=== PATIENT | female | born 1995 | race African-American/Black ===

== ENCOUNTER 2017-06-13 17:17 | Emergency (ER) | payer OTHER ==
[~2017-06-13] VITALS: Ht 152.4 cm; Wt 54.9 kg
[2017-06-13] MEDS ORDERED: IV NORMAL SALINE 1000ML BAG 1,000 ML IV SCH (17:31)
[2017-06-13 17:58] LABS: BASO % 1 % (0-3); EOS % 1 % (0-3); HEMATOCRIT 31.2 % (36.0-47.0); HEMOGLOBIN 10.6 g/dL (12.0-15.5); LYMPH # 1.9 x10^3/uL (1.0-4.8); LYMPH % 34 % (24-48); MEAN CORPUSCULAR HEMOGLOBIN 27 pg (25-35); MEAN CORPUSCULAR HGB CONC 34 g/dL (31-37); MEAN CORPUSCULAR VOLUME 81 fL (79-100); MONO % 9 % (0-9); NEUT % 56 % (31-73); PLATELET COUNT 290 x10^3/uL (140-400); RED BLOOD COUNT 3.86 x10^6/uL (3.50-5.40); RED CELL DISTRIBUTION WIDTH 19.6 % (11.5-14.5); WHITE BLOOD COUNT 5.6 x10^3/uL (4.0-11.0)
[2017-06-13 18:17] LABS: CALCIUM 9.4 mg/dL (8.5-10.1); CREATININE 0.6 mg/dL (0.6-1.0); GFR 126.2; POTASSIUM 3.2 mmol/L (3.5-5.1)
[2017-06-13 18:22] LABS: ALBUMIN 3.4 g/dL (3.4-5.0); ALBUMIN/GLOBULIN RATIO 0.7 (1.0-1.7); TOTAL BILIRUBIN 0.3 mg/dL (0.2-1.0); TOTAL PROTEIN 8.2 g/dL (6.4-8.2)
--- NOTE | 2017-06-13 18:26 | RAD ---
OB ultrasound less than 14 weeks 06/13/2017 CLINICAL HISTORY: First trimester with abdominal pain. TECHNIQUE: A real-time ultrasound examination of the gravid uterus was performed. Multiple images were obtained. FINDINGS: A gestational sac is seen within the endometrial canal within the body of the uterus. Within this gestational sac an embryonic pole is seen. The CRL of this embryonic pole measures 4.0 cm. This corresponds to an estimated gestational age by ultrasound of 10 weeks 6 days plus or minus a standard deviation of 7 days. Embryonic cardiac activity is seen with a heart rate of 182 beats per minutes. The uterus is otherwise within normal limits. The left ovary is not visualized. The right ovary is normal in size. It measures 4.9 x 2.7 x 3.5 cm in size. A 2.5 cm corpus luteum is seen involving the right ovary. No free fluid is seen. IMPRESSION: Single living IUP with an estimated gestational age by ultrasound of 10 weeks 6 days plus or minus a standard deviation of 5 days. The estimated date of delivery by ultrasound of 01/03/2018. Electronically signed by: Jhonny Patel MD (06/13/2017 6:23 PM) [facility]
--- NOTE | 2017-06-13 19:14 | PHYS DOC ---
Past Medical History Past Medical History: No Pertinent History Past Surgical History: No Surgical History Alcohol Use: None Drug Use: None Adult General Chief Complaint Chief Complaint: ABDOMINAL PAIN IN HPI HPI Patient is a 21 year old female who reports that she is about 10 weeks who presents with abdominal pain that started last night. It started on both sides of her abdomen in the middle to upper abdomen last night. She was able to sleep okay but the pain was back this morning. Bouts more in the middle of her abdomen. She does have some lower abdominal discomfort. She has not had any spotting or bleeding. She's had nausea today but no vomiting. Patient is G1. She had a positive home test. She was seen in the ED in [place] for cramps but no bleeding, she did not have an ultrasound but they did confirm a positive test. They prescribed Tylenol with Codeine but that made her nauseated and she took only 2 of them. Patient is in good general health, no chronic medical problems, and does not take daily medications. She does not yet have a new OB appointment. She works doing assembly work. Review of Systems Review of Systems Constitutional: Denies fever or chills [] HENT: Denies nasal congestion or sore throat [] Respiratory: Denies cough or shortness of breath [] Cardiovascular: Denies chest pain GI: As in history of present illness : Denies dysuria or hematuria , denies spotting or bleeding Musculoskeletal: Denies back pain or joint pain [] Integument: Denies rash or skin lesions [] Neurologic: Denies headache Current Medications Current Medications Current Medications Medications (Trade) Dose Ordered Sig/Janet Start Time Stop Time Status Last Admin Dose Admin Sodium Chloride 1,000 ml @ 1,000 mls/hr Q1H 06/13/17 17:31 06/13/17 18:30 DC 06/13/17 17:49 1,000 MLS/HR Allergies Allergies Allergies Coded Allergies Type Severity Reaction Last Updated Verified No Known Drug Allergies 06/13/17 No Physical Exam Physical Exam Constitutional: Well developed, well nourished, no acute distress, non-toxic appearance. Alert, mentating normally, ambulatory, warm and dry. HENT: Normocephalic, atraumatic, bilateral external ears normal, nose normal. [] Eyes: conjunctiva normal, no discharge. [] Neck: Normal range of motion, no stridor. [] Cardiovascular:Heart rate regular rhythm, no murmur [] Lungs & Thorax: Bilateral breath sounds clear to auscultation [] Abdomen: Bowel sounds normal, soft, nondistended, no masses, no pulsatile masses. Mild generalized tenderness to palpation across the mid abdomen. Little to no lower abdominal tenderness. Negative right lower quadrant tenderness. Negative Florez's. Skin: Warm, dry, no erythema, no rash. [] Extremities: No tenderness, no cyanosis, no clubbing, ROM intact, no edema. [] Neurologic: Alert and oriented X 3, normal motor function, no focal deficits noted. [] Current Patient Data Vital Signs Vital Signs Date Time Temp Pulse Resp B/P (MAP) Pulse Ox O2 Delivery O2 Flow Rate FiO2 06/13/17 19:30 90 20 114/72 (86) 99 Room Air 06/13/17 17:20 98.3 98.3 Lab Values Laboratory Tests Test 06/13/17 17:27 06/13/17 17:55 POC Urine HCG, Qualitative Hcg positive (Negative) White Blood Count 5.6 x10^3/uL (4.0-11.0) Red Blood Count 3.86 x10^6/uL (3.50-5.40) Hemoglobin 10.6 g/dL (12.0-15.5) L Hematocrit 31.2 % (36.0-47.0) L Mean Corpuscular Volume 81 fL (79-100) Mean Corpuscular Hemoglobin 27 pg (25-35) Mean Corpuscular Hemoglobin Concent 34 g/dL (31-37) Red Cell Distribution Width 19.6 % (11.5-14.5) H Platelet Count 290 x10^3/uL (140-400) Neutrophils (%) (Auto) 56 % (31-73) Lymphocytes (%) (Auto) 34 % (24-48) Monocytes (%) (Auto) 9 % (0-9) Eosinophils (%) (Auto) 1 % (0-3) Basophils (%) (Auto) 1 % (0-3) Neutrophils # (Auto) 3.2 x10^3uL (1.8-7.7) Lymphocytes # (Auto) 1.9 x10^3/uL (1.0-4.8) Monocytes # (Auto) 0.5 x10^3/uL (0.0-1.1) Eosinophils # (Auto) 0.0 x10^3/uL (0.0-0.7) Basophils # (Auto) 0.0 x10^3/uL (0.0-0.2) Maternal Serum HCG Beta Subunit 748259 mIU/mL (0-5) H Sodium Level 135 mmol/L (136-145) L Potassium Level 3.2 mmol/L (3.5-5.1) L Chloride Level 100 mmol/L (98-107) Carbon Dioxide Level 24 mmol/L (21-32) Anion Gap 11 (6-14) Blood Urea Nitrogen 6 mg/dL (7-20) L Creatinine 0.6 mg/dL (0.6-1.0) Estimated GFR (Cockcroft-Gault) 126.2 BUN/Creatinine Ratio 10 (6-20) Glucose Level 82 mg/dL (70-99) Calcium Level 9.4 mg/dL (8.5-10.1) Total Bilirubin 0.3 mg/dL (0.2-1.0) Aspartate Amino Transferase (AST) 17 U/L (15-37) Alanine Aminotransferase (ALT) 19 U/L (14-59) Alkaline Phosphatase 47 U/L (46-116) Total Protein 8.2 g/dL (6.4-8.2) Albumin 3.4 g/dL (3.4-5.0) Albumin/Globulin Ratio 0.7 (1.0-1.7) L Laboratory Tests 06/13/17 17:55 Laboratory Tests 06/13/17 17:55 EKG EKG [] Radiology/Procedures Radiology/Procedures Pelvic ultrasound read by the radiologist. IMPRESSION: Single living IUP with an estimated gestational age by ultrasound of 10 weeks 6 days plus or minus a standard deviation of 5 days. The estimated date of delivery by ultrasound of 01/03/2018.[] Course & Med Decision Making Course & Med Decision Making Pertinent Labs and Imaging studies reviewed. (See chart for details) 21-year-old female, G1, presents with mid abdominal discomfort since last night but does not sound necessarily related. Nausea but no vomiting. Labs are unremarkable. Pelvic ultrasound shows IUP with positive heart tones. Although I don't know what is causing her symptoms, I discussed with the patient that we could try treating with a dose of laxative to see if that makes any difference. Encourage follow-up with OB for new OB. She is agreeable to that plan. [] Lora Disclaimer Shakaon Disclaimer This electronic medical record was generated, in whole or in part, using a voice recognition dictation system. Departure Departure Impression: Primary Impression: Abdominal pain affecting Additional Impression: First trimester Disposition: HOME, SELF-CARE Condition: STABLE Referrals: NO PCP (PCP) Additional Instructions: Ultrasound today showed that your appears to be normal, with a normal heartbeat, in your uterus. There's No evidence that your abdominal pain is related to your . Labs today were normal. We don't know what is causing your abdominal pain. I recommend that you try taking a laxative such as milk of magnesia or magnesium citrate to see if that makes any difference. Stick with clear liquids and small amounts of bland foods for the next 1-2 days. If your pain gets worse, recheck in emergency. It's important to get a new OB appointment made as soon as possible. Problem Qualifiers ANAMIKA VIDAL MD Jun 13, 2017 19:14
[2017-06-13 19:30] VITALS: BP 114/72
== END 2017-06-13 19:30 | disposition home or self-care (01) ==
LOC: ER 17:17
DX: O26.891 Other specified pregnancy related conditions, first trimester (principal); R10.84 Generalized abdominal pain; R11.0 Nausea
CPT/HCPCS: 36415; 76801; 80053; 81025; 84702; 85025; 86900; 86901; 96360; 99285; J7030

== ENCOUNTER 2017-07-18 16:23 | Emergency (ER) | payer OTHER ==
[~2017-07-18] VITALS: Ht 152.4 cm; Wt 53.5 kg
[2017-07-18 16:30] VITALS: BP 106/72
[2017-07-18] MEDS ORDERED: TRIA15OI TP (16:56)
--- NOTE | 2017-07-18 16:57 | PHYS DOC ---
Past Medical History Past Medical History: No Pertinent History Past Surgical History: No Surgical History Alcohol Use: None Drug Use: None Adult General Chief Complaint Chief Complaint: SKIN RASH/ABSCESS HPI HPI Patient is a 21 year old female currently 15 weeks 1 para 0 who presents today with a pruritic rash to bilateral upper and lower extremity for 1 month. Patient denies any known source for this rash. She states she has tried [id number] medications with no relief. Patient states she follows up with her [facility] for her . She does not have any abdominal pain back pain or cramping or vag bleeding. Review of Systems Review of Systems Constitutional: Denies fever or chills [] GI: Denies abdominal pain, nausea, vomiting, bloody stools or diarrhea [] : Denies dysuria or hematuria [] Musculoskeletal: Denies back pain or joint pain [] Integument: rash Neurologic: Denies headache, focal weakness or sensory changes [] All other systems were reviewed and found to be within normal limits, except as documented in this note. Allergies Allergies Allergies Coded Allergies Type Severity Reaction Last Updated Verified No Known Drug Allergies 06/13/17 No Physical Exam Physical Exam Constitutional: Well developed, well nourished, no acute distress, non-toxic appearance. [] Abdomen: Gravid abdomen. Bowel sounds normal, soft, no tenderness, no masses, no pulsatile masses. [] Skin: Warm, dry, small amount of erythema has macular/papular rash to bilateral upper and lower extremities. Some of the rashes appear excoriated. Back: No tenderness, no CVA tenderness. [] Extremities: No tenderness, no cyanosis, no clubbing, ROM intact, no edema. [] Neurologic: Alert and oriented X 3, normal motor function, normal sensory function, no focal deficits noted. [] Psychologic: Affect normal, judgement normal, mood normal. [] Current Patient Data Vital Signs Vital Signs Date Time Temp Pulse Resp B/P (MAP) Pulse Ox O2 Delivery O2 Flow Rate FiO2 07/18/17 16:30 98.1 90 16 99 Room Air 98.1 EKG EKG [] Radiology/Procedures Radiology/Procedures [] Course & Med Decision Making Course & Med Decision Making Pertinent Labs and Imaging studies reviewed. (See chart for details) This is a 15 week female patient 1 para 0 presenting with a pruritic rash for 1 month. She has tried [id number] medications with no relief. Will be discharged with triamcinolone. She states she follows up with her OB for related concerns. Lora Disclaimer Lora Disclaimer This electronic medical record was generated, in whole or in part, using a voice recognition dictation system. Departure Departure Impression: Primary Impression: Contact dermatitis Disposition: HOME, SELF-CARE Condition: STABLE Referrals: NO PCP (PCP) follow up with your OBGYN as scheduled Patient Instructions: Contact Dermatitis, Ppam-vb-Amet Additional Instructions: You were seen with contact dermatitis rash from unknown cause. Use the prescribed cream as ordered. Follow-up with your own [facility] as scheduled. Come back to the ED if symptoms worsen. Scripts Triamcinolone Acetonide (TRIAMCINOLONE ACETONIDE 0.1% OINT) 15 Gm Oint...g. 1 YARON TP BID for WOUND CARE, #1 TUBE Prov: ALEXSANDER RICK APRN 07/18/17 Problem Qualifiers Primary Impression: Contact dermatitis Contact dermatitis type: unspecified Contact dermatitis trigger: unspecified trigger Qualified Codes: L25.9 - Unspecified contact dermatitis, unspecified cause ALEXSANDER RICK APRN Jul 18, 2017 16:56
== END 2017-07-18 17:07 | disposition home or self-care (01) ==
LOC: ER 16:23
DX: O99.712 Diseases of the skin and subcutaneous tissue complicating pregnancy, second trimester (principal); L25.9 Unspecified contact dermatitis, unspecified cause; Z3A.15 15 weeks gestation of pregnancy
CPT/HCPCS: 99283

== ENCOUNTER 2017-11-17 05:42 | Observation (INO) | payer OTHER ==
[2017-11-17 06:33] LABS: BILIRUBIN,URINE NEGATIVE (NEG); CLARITY,URINE CLEAR; COLOR,URINE YELLOW; GLUCOSE,URINE NEGATIVE (NEG); NITRITE,URINE NEGATIVE (NEG); PH,URINE 7.5; PROTEIN,URINE NEGATIVE (NEG-TRACE)
[2017-11-17 06:40] LABS: BARBITURATES NEG (NEG); BENZODIAZEPINES NEG (NEG); CANNABINOIDS NEG (NEG); COCAINE NEG (NEG); METHADONE NEG (NEG); OPIATES NEG (NEG); PHENCYCLIDINE NEG (NEG)
[2017-11-17 06:41] LABS: AMPHETAMINE/METHAMPHETAMINE NEG (NEG); ETHANOL, URINE NEG (NEG)
[2017-11-17 06:49] LABS: BACTERIA,URINE 0 /HPF (0-FEW); RBC,URINE 0 /HPF (0-2); SQUAMOUS EPITHELIAL CELL,UR MANY /LPF
[2017-11-17] MEDS: ACETAMINOPHEN 325 MG TABLET. PO (08:14)
== END 2017-11-17 08:30 | disposition home or self-care (01) ==
LOC: 3 SO LND 05:42
DX: O26.893 Other specified pregnancy related conditions, third trimester (principal); R10.31 Right lower quadrant pain; Z3A.33 33 weeks gestation of pregnancy; Z79.899 Other long term (current) drug therapy
CPT/HCPCS: 80307; 81001; 87086; G0378; G0379

== ENCOUNTER 2018-02-14 21:07 | Emergency (ER) | payer OTHER | END 2018-02-14 21:59 | disposition home or self-care (01) | LOC: ER 21:07 | DX: K64.9 Unspecified hemorrhoids (principal); K59.00 Constipation, unspecified | CPT/HCPCS: 99283 ==